=== PATIENT | male | born 2005 | race African-American/Black ===

== ENCOUNTER 2024-02-17 05:40 | Emergency (ER) | payer MEDICAID, OTHER ==
[~2024-02-17] VITALS: Ht 190.5 cm; Wt 95.5 kg
[2024-02-17 05:50] VITALS: BP 128/68; PULSE 86; RESP 18; O2SAT 98
== END 2024-02-17 06:44 | disposition left against medical advice (07) ==
LOC: EDBD 05:40 → ER 05:40
DX: R11.2 Nausea with vomiting, unspecified (principal); R10.84 Generalized abdominal pain; Z53.21 Procedure and treatment not carried out due to patient leaving prior to being seen by health care provider